=== PATIENT | male | born 1940 | race Caucasian/White ===

== ENCOUNTER → 2017-10-07 | Outpatient (CLI) | payer OTHER ==
[~2017-10-07] MED LIST: ASPIRIN EC81 M1; CENTRUM COMPLE1 EACH; FISHOIL; GLUCOPHAGE500 MG; LISINOPRIL-HCT1 EACH; LORTAB 5 MG/5001 TA1 PO; LOVASTAT40; VITAMIN D400 UNI1
== END ==
LOC: M.RAD 09:03
DX: J45.41 Moderate persistent asthma with (acute) exacerbation (principal); M47.814 Spondylosis without myelopathy or radiculopathy, thoracic region; J15.8 Pneumonia due to other specified bacteria

== ENCOUNTER → 2020-10-17 | Outpatient (CLI) | payer OTHER | LOC: M.CT 08:16 | PROVIDERS: ATTEND Internal Medicine | DX: K57.30 Diverticulosis of large intestine without perforation or abscess without bleeding (principal); R10.31 Right lower quadrant pain; R10.9 Unspecified abdominal pain; N28.1 Cyst of kidney, acquired; K76.0 Fatty (change of) liver, not elsewhere classified ==

== ENCOUNTER → 2020-11-03 | Outpatient (CLI) | payer OTHER | LOC: M.ULTRA 08:29 | PROVIDERS: ATTEND Internal Medicine | DX: N28.1 Cyst of kidney, acquired (principal); K76.0 Fatty (change of) liver, not elsewhere classified; K80.20 Calculus of gallbladder without cholecystitis without obstruction; R93.5 Abnormal findings on diagnostic imaging of other abdominal regions, including retroperitoneum ==